=== PATIENT | female | born 1930 | race Caucasian/White ===

== ENCOUNTER → 2017-12-12 | Outpatient (CLI) | payer MEDICARE ==
[~2017-12-12] MED LIST: ASPIRIN81 M1 PO; EPA FISH OIL1000 MG PO; LOVASTATIN10 MG PO; MULTIVITAMIN FO1 CAP PO; OSCAL + D PO; OSCAL/D,OYSTER250 MG PO; PAXIL20 MG PO; PRILOSEC10 MG PO; VITAMIN D PO; ZITHROMAX250 MG PO
== END | disposition home or self-care (01) ==
LOC: US 13:19
DX: I73.9 Peripheral vascular disease, unspecified (principal); E11.9 Type 2 diabetes mellitus without complications; I10 Essential (primary) hypertension; Z87.891 Personal history of nicotine dependence